=== PATIENT | female | born 1980 | race Caucasian/White ===

== ENCOUNTER 2017-03-21 18:04 | Emergency (ER) | payer SELFPAY ==
[~2017-03-21] VITALS: Ht 167.6 cm; Wt 55.0 kg
[2017-03-21 18:16] VITALS: BP 111/81
== END 2017-03-21 22:00 | disposition left against medical advice (07) ==
LOC: ER 18:04
DX: Z53.21 Procedure and treatment not carried out due to patient leaving prior to being seen by health care provider (principal)